=== PATIENT | male | born 1990 | race African-American/Black ===

== ENCOUNTER 2019-03-02 12:20 | Emergency (ER) | payer SELFPAY ==
[~2019-03-02] VITALS: Ht 177.8 cm; Wt 107.0 kg
[2019-03-02] MEDS ORDERED: KETOROLAC 30MG/ML VIAL IM ONE (13:30)
[2019-03-02 13:58] VITALS: BP 129/63
== END 2019-03-02 13:59 | disposition home or self-care (01) ==
LOC: ER 12:32
DX: M54.2 Cervicalgia (principal); M54.5 Low back pain; F12.10 Cannabis abuse, uncomplicated; V43.52XA Car driver injured in collision with other type car in traffic accident, initial encounter; Y93.89 Activity, other specified; Y92.488 Other paved roadways as the place of occurrence of the external cause
CPT/HCPCS: 96372; 99283; J1885

== ENCOUNTER 2019-11-27 22:55 | Emergency (ER) | payer MEDICAID, OTHER ==
[~2019-11-27] VITALS: Ht 177.8 cm; Wt 107.0 kg
[2019-11-27 23:13] VITALS: BP 132/86
[2019-11-27] MEDS ORDERED: CEFTRIAXONE SODIUM 250 MG/VIAL IM ONE (23:30)
[2019-11-27] MEDS ORDERED: AZITHROMYCIN 500 MG TABLET PO ONE (23:30)
[2019-11-27] MEDS ORDERED: LIDOCAINE HCL/PF 1% 10 MG/ML 5ML VIAL IJ ONE (23:45)
== END 2019-11-28 00:14 | disposition home or self-care (01) ==
LOC: ER 23:20
DX: Z20.2 Contact with and (suspected) exposure to infections with a predominantly sexual mode of transmission (principal)
CPT/HCPCS: 96372; 99283; J0696; J3490

== ENCOUNTER 2020-01-26 21:46 | Emergency (ER) | payer MEDICAID ==
[~2020-01-26] VITALS: Ht 177.8 cm; Wt 91.0 kg
[2020-01-26] MEDS ORDERED: CEFTRIAXONE SODIUM 250 MG/VIAL IM ONE (22:45)
[2020-01-26] MEDS ORDERED: AZITHROMYCIN 500 MG TABLET PO ONE (22:45)
[2020-01-26 23:25] VITALS: BP 130/72
[2020-01-26 23:32] LABS: CLARITY URINE CLEAR (CLEAR); COLOR URINE YELLOW (YELLOW); KETONES URINE TRACE (NEGATIVE); LEUKOCYTE ESTERASE URINE 2+ (NEGATIVE); NITRITE URINE NEGATIVE (NEGATIVE); OCCULT BLOOD URINE NEGATIVE (NEGATIVE); PH URINE 5.5 (4.5-8.0); PROTEIN URINE NEGATIVE (NEGATIVE); SPECIFIC GRAVITY URINE 1.035 (1.005-1.030)
[2020-01-29 04:16] LABS: NEISSERIA GONORRHOEAE NAA Positive (Negative)
== END 2020-01-26 23:26 | disposition home or self-care (01) ==
LOC: ER 21:46
DX: R36.9 Urethral discharge, unspecified (principal); F12.10 Cannabis abuse, uncomplicated
CPT/HCPCS: 81003; 87086; 87491; 87591; 96372; 99283; J0696

== ENCOUNTER 2020-05-25 22:51 | Emergency (ER) | payer MEDICAID, OTHER ==
[~2020-05-25] VITALS: Ht 177.8 cm; Wt 107.0 kg
[2020-05-25] MEDS ORDERED: CEFTRIAXONE SODIUM 500 MG/VIAL IM ONE (23:15)
[2020-05-25] MEDS ORDERED: LIDOCAINE HCL 1% 20ML VIAL (Pyxis) INJ INFIL ONE (23:15)
[2020-05-25] MEDS ORDERED: DOXY100C2 MT (23:17)
[2020-05-25 23:41] VITALS: BP 131/74
[2020-05-28 04:06] LABS: NEISSERIA GONORRHOEAE NAA Positive (Negative)
== END 2020-05-25 23:42 | disposition home or self-care (01) ==
LOC: ER 22:51
DX: A54.09 Other gonococcal infection of lower genitourinary tract (principal); F12.90 Cannabis use, unspecified, uncomplicated
CPT/HCPCS: 87491; 87591; 96372; 99283; J0696; J3490

== ENCOUNTER 2022-04-22 20:39 | Emergency (ER) | payer MEDICAID, OTHER ==
[~2022-04-22] VITALS: Ht 177.8 cm; Wt 112.0 kg
[~2022-04-22 20:39] MED LIST: DOXY100C5 MT
[2022-04-22 21:20] VITALS: BP 146/80
[2022-04-22] MEDS ORDERED: LIDOCAINE HCL 1% 20ML VIAL (Pyxis) INJ INFIL NR (23:00)
[2022-04-22] MEDS ORDERED: CEFTRIAXONE SODIUM 500 MG/VIAL IM NR (23:00)
[2022-04-22 23:04] LABS: CLARITY URINE CLEAR (CLEAR); COLOR URINE YELLOW (YELLOW); KETONES URINE NEGATIVE (NEGATIVE); LEUKOCYTE ESTERASE URINE 2+ (NEGATIVE); NITRITE URINE NEGATIVE (NEGATIVE); OCCULT BLOOD URINE NEGATIVE (NEGATIVE); PROTEIN URINE NEGATIVE (NEGATIVE); SPECIFIC GRAVITY URINE 1.022 (1.005-1.030); UROBILINOGEN URINE 0.2 E.U./dL (0.2-1.0)
[2022-04-22] MEDS ORDERED: DOXY100T28 PO (23:18)
[2022-04-28 04:08] LABS: NEISSERIA GONORRHOEAE NAA Negative (Negative)
== END 2022-04-22 23:25 | disposition home or self-care (01) ==
LOC: ER 20:39
DX: N34.2 Other urethritis (principal); F12.10 Cannabis abuse, uncomplicated
CPT/HCPCS: 81003; 87086; 87491; 87591; 96372; 99283; J0696

== ENCOUNTER 2023-03-09 12:51 | Emergency (ER) | payer MEDICAID, OTHER ==
[~2023-03-09] VITALS: Ht 180.3 cm; Wt 128.0 kg
[~2023-03-09 12:51] MED LIST changes: +DOXY100T28 PO
[2023-03-09 12:57] VITALS: TEMP 97.9; O2SAT 97
[2023-03-09] MEDS ORDERED: IBUPROFEN 400MG TABLET PO NR (13:30)
[2023-03-09] MEDS ORDERED: IBUPROFEN 800MG TABLET PO ONE (13:30)
[2023-03-09 13:53] VITALS: BP 137/85; PULSE 76; RESP 16
[2023-03-09] MEDS ORDERED: HYDR-4001 MT ×2 (14:03→14:10)
[2023-03-09] MEDS ORDERED: IBUP-2030 MT ×2 (14:03→14:10)
== END 2023-03-09 16:22 | disposition home or self-care (01) ==
LOC: ER 12:51
DX: M25.561 Pain in right knee (principal); F12.10 Cannabis abuse, uncomplicated; Z79.899 Other long term (current) drug therapy
CPT/HCPCS: 73562; 99283; Z7610; L1830

== ENCOUNTER 2023-09-06 22:22 | Emergency (ER) | payer MEDICAID ==
[~2023-09-06] VITALS: Ht 177.8 cm; Wt 109.0 kg
[~2023-09-06 22:22] MED LIST changes: +HYDR-4001 MT; +IBUP-2030 MT
[2023-09-06 23:23] VITALS: BP 130/84; PULSE 70; RESP 18; O2SAT 98
[2023-09-07] MEDS ORDERED: CEFTRIAXONE SODIUM 500MG VIAL IM ONE (01:00)
[2023-09-07] MEDS ORDERED: DOXY100T2 MT (01:14)
== END 2023-09-07 02:35 | disposition left against medical advice (07) ==
LOC: ER 22:22
DX: Z20.2 Contact with and (suspected) exposure to infections with a predominantly sexual mode of transmission (principal)
CPT/HCPCS: 99283